=== PATIENT | male | born 1985 | race Caucasian/White ===

== ENCOUNTER 2023-08-13 03:37 | Emergency (ER) | payer SELFPAY ==
[~2023-08-13] VITALS: Ht 182.9 cm; Wt 113.4 kg
[2023-08-13 03:44] VITALS: BP 150/87; PULSE 98; RESP 18; TEMP 97.6; O2SAT 98
[2023-08-13] MEDS ORDERED: METH4TAB1 PO (04:01)
[2023-08-13] MEDS ORDERED: AMOX-1230 PO (04:01)
[2023-08-13 04:08] VITALS: BP 150/87; PULSE 98; RESP 18; TEMP 97.6; O2SAT 98
[2023-08-13] MEDS: predniSONE 20 MG TAB PO ONE (04:08)
== END 2023-08-13 04:08 | disposition home or self-care (01) ==
LOC: MED 03:37
DX: K12.2 Cellulitis and abscess of mouth (principal); Z79.899 Other long term (current) drug therapy
CPT/HCPCS: 99283; J7512